=== PATIENT | female | born 1960 | race Caucasian/White ===

== ENCOUNTER → 2017-06-20 | Outpatient (CLI) | payer SELFPAY ==
[~2017-06-20] MED LIST: DEPAKOTE250 MG PO; EFFEXOR XR75 MG PO; RISPERDAL4 MG PO
== END | disposition designated cancer center or children's hospital (05) ==
LOC: RAD 09:00
DX: R41.82 Altered mental status, unspecified (principal)
CPT/HCPCS: 70450

== ENCOUNTER 2017-06-24 12:48 | Emergency (ER) | payer SELFPAY ==
[~2017-06-24] VITALS: Ht 177.8 cm; Wt 77.4 kg
[2017-06-24 14:21] LABS: BASOPHIL (%) 0.6 % (0-1); EOSINOPHIL (%) 1.8 % (0-5); EOSINOPHIL COUNT 0.1 K/uL (0-0.3); HEMATOCRIT 41.4 % (36.0-46.0); HEMOGLOBIN 14.1 G/DL (11.9-15.5); IMMATURE GRANULOCYTE (%) 0.3 % (0.0-0.7); LYMPHOCYTE (%) 49.1 % (15-42); LYMPHOCYTE COUNT 3.6 K/uL (1.0-2.8); MCH 32.3 PG (29.0-34.0); MCHC 34.1 G/DL (30.0-36.0); MCV 94.7 FL (83-99); MONOCYTE (%) 11.3 % (3-12); MONOCYTE COUNT 0.8 K/uL (0-0.8); NEUTROPHIL (%) 36.9 % (45-76); NEUTROPHIL COUNT 2.7 K/uL (1.8-6.4); PLATELET COUNT 257 K/uL (156-360); RBC DIS.WIDTH-CV 12.2 % (11.8-14.6); RBC DIS.WIDTH-SD 42.7 % (39-53); RED BLOOD COUNT 4.37 M/uL (3.80-5.20); WHITE BLOOD COUNT 7.3 K/uL (4.1-10.2)
[2017-06-24 14:22] LABS: ALBUMIN 4.4 g/dL (3.2-4.8)
[2017-06-24 14:23] LABS: CHLORIDE 104 mEq/L (99-109); POTASSIUM 4.3 mEq/L (3.7-5.4); SODIUM 142 mEq/L (136-147)
[2017-06-24 14:25] LABS: GLUCOSE 69 mg/dL (70-99); TOTAL PROTEIN 7.8 g/dL (6.4-8.3)
[2017-06-24 14:27] LABS: TOTAL BILIRUBIN 0.3 mg/dL (0.0-1.0)
[2017-06-24 14:28] LABS: ALKALINE PHOSPHATASE 86 IU/L (3-129); SERUM ETHYL ALCOHOL < 10 mg/dL
[2017-06-24 14:29] LABS: CREATININE 0.8 mg/dL (0.6-1.3); GFR ESTIMATE (CALCULATED) > 59 mL/min/
[2017-06-24 14:30] LABS: UREA NITROGEN (BUN) 19 mg/dL (9-23)
[2017-06-24 14:31] LABS: AST (GOT) 27 IU/L (2-34)
[2017-06-24 14:32] LABS: ALT (GPT) 27 IU/L (3-49)
[2017-06-24 15:35] LABS: APPEARANCE SL.HAZY ((CLEAR)); BILIRUBIN NEGATIVE; BLOOD NEGATIVE; COLOR YELLOW ((YELLOW)); GLUCOSE (STRIP) NEGATIVE; KETONES NEGATIVE; LEUKOCYTES NEGATIVE; NITRITE NEGATIVE; PROTEIN (STRIP) NEGATIVE; SPECIFIC GRAVITY 1.028 (1.000-1.030); UROBILINOGEN 0.2 MG/DL (0.2-1.0)
[2017-06-24 15:47] LABS: AMPHETAMINE NEGATIVE (500 ng/mL); BACTERIA NONE SEEN /HPF; BARBITURATES NEGATIVE (200 ng/mL); BENZODIAZEPINES NEGATIVE (150 ng/mL); BUPRENORPHINE NEGATIVE (10 ng/mL); COCAINE NEGATIVE (150 ng/mL); EPITHELIAL CELLS RARE /HPF; METHADONE NEGATIVE (200 ng/mL); METHAMPHETAMINE NEGATIVE (500 ng/mL); MUCUS TRACE /LPF; OPIATES (MORPHINE) NEGATIVE (100 ng/mL); OXYCODONE NEGATIVE (100 ng/mL); PHENCYCLIDINE NEGATIVE (25 ng/mL); PROPOXYPHENE NEGATIVE (300 ng/mL); THC CANNABINOIDS NEGATIVE (50 ng/mL); TRICYCLIC ANTIDEPRESSANTS NEGATIVE (300 ng/mL); UCUL ADDED? NO; WHITE BLOOD CELLS 0-5 /HPF (0-5)
[2017-06-24] MEDS ORDERED: DEPAKOTE250 MG PO (17:11)
[2017-06-24] MEDS ORDERED: RISPERDAL4 MG PO (17:11)
[2017-06-24] MEDS ORDERED: EFFEXOR XR75 MG PO (17:11)
[2017-06-24 18:43] VITALS: BP 115/72
== END 2017-06-24 18:48 ==
LOC: EME 12:48
PROVIDERS: Emergency Medicine
DX: F29 Unspecified psychosis not due to a substance or known physiological condition (principal); F22 Delusional disorders; E16.2 Hypoglycemia, unspecified; Z87.820 Personal history of traumatic brain injury; F31.9 Bipolar disorder, unspecified; F03.90 Unspecified dementia, unspecified severity, without behavioral disturbance, psychotic disturbance, mood disturbance, and anxiety; I10 Essential (primary) hypertension; F41.9 Anxiety disorder, unspecified
CPT/HCPCS: 80053; 81003; 82140; 82948; 85025; 90839; 99281; 99285; G0480

== ENCOUNTER 2017-08-05 10:35 | Emergency (ER) | payer SELFPAY ==
[~2017-08-05] VITALS: Ht 172.7 cm; Wt 83.8 kg
[2017-08-05 12:46] LABS: BASOPHIL (%) 0.5 % (0-1); BASOPHIL COUNT 0.1 K/uL (0-0.1); EOSINOPHIL (%) 1.3 % (0-5); EOSINOPHIL COUNT 0.1 K/uL (0-0.3); HEMATOCRIT 38.2 % (36.0-46.0); HEMOGLOBIN 13.1 G/DL (11.9-15.5); IMMATURE GRANULOCYTE (%) 0.5 % (0.0-0.7); LYMPHOCYTE (%) 26.3 % (15-42); LYMPHOCYTE COUNT 2.9 K/uL (1.0-2.8); MCHC 34.3 G/DL (30.0-36.0); MCV 93.4 FL (83-99); MONOCYTE (%) 9.1 % (3-12); NEUTROPHIL (%) 62.3 % (45-76); NEUTROPHIL COUNT 6.9 K/uL (1.8-6.4); PLATELET COUNT 320 K/uL (156-360); RBC DIS.WIDTH-CV 12.6 % (11.8-14.6); RBC DIS.WIDTH-SD 43.4 % (39-53); RED BLOOD COUNT 4.09 M/uL (3.80-5.20)
[2017-08-05 12:51] LABS: INTER. NORMALIZED RATIO 1.2
[2017-08-05 12:56] LABS: ALBUMIN 3.8 g/dL (3.2-4.8); CHLORIDE 105 mEq/L (99-109)
[2017-08-05 12:57] LABS: POTASSIUM 4.2 mEq/L (3.7-5.4); SODIUM 137 mEq/L (136-147)
[2017-08-05 12:59] LABS: GLUCOSE 96 mg/dL (70-99); TOTAL PROTEIN 6.8 g/dL (6.4-8.3)
[2017-08-05 13:01] LABS: TOTAL BILIRUBIN 0.3 mg/dL (0.0-1.0)
[2017-08-05 13:02] LABS: ALKALINE PHOSPHATASE 63 IU/L (3-129); CREATININE 0.7 mg/dL (0.6-1.3); GFR ESTIMATE (CALCULATED) > 59 mL/min/
[2017-08-05 13:04] LABS: AST (GOT) 30 IU/L (2-34); UREA NITROGEN (BUN) 10 mg/dL (9-23)
[2017-08-05 13:05] LABS: ALT (GPT) 33 IU/L (3-49)
[2017-08-05 16:20] VITALS: BP 152/87
== END 2017-08-05 16:20 | disposition designated cancer center or children's hospital (05) ==
LOC: EME 10:35
PROVIDERS: Emergency Medicine
DX: F03.90 Unspecified dementia, unspecified severity, without behavioral disturbance, psychotic disturbance, mood disturbance, and anxiety (principal); I10 Essential (primary) hypertension; F32.9 Major depressive disorder, single episode, unspecified; F41.9 Anxiety disorder, unspecified; F10.10 Alcohol abuse, uncomplicated; Z86.73 Personal history of transient ischemic attack (TIA), and cerebral infarction without residual deficits; Z87.820 Personal history of traumatic brain injury; Z91.81 History of falling
CPT/HCPCS: 70450; 71045; 80053; 81003; 85025; 85610; 99281; 99284

== ENCOUNTER → 2017-08-29 | Outpatient (CLI) | payer OTHER ==
[~2017-08-29] MED LIST changes: +ACIDOPHILUS1 EAC3 PO; +ATIVAN0.5 MG PO; +BISA-LAX5 MG PO; +CALCIDOL8000 UNIT/ PO; +FOLIC ACID1 MG PO; +LEVO-T112 MCG PO; +LIORESAL10 MG PO; +LOVENOX40 MG/0.4 SC; +MULTIVIT A B D PO; +NEURONTIN250 MG/5 M PO; +NON-ASPIRIN PA500 M1 PO; +PROTONIX40 M1 PO; +SILACE50 MG/5 ML PO; +VALTREX50 MG/ML PO; +VITAMIN B-1100 MG PO; +ZESTRIL10 MG PO
== END | disposition home or self-care (01) ==
LOC: AMB 09:30
DX: R13.10 Dysphagia, unspecified (principal); G31.2 Degeneration of nervous system due to alcohol; F10.259 Alcohol dependence with alcohol-induced psychotic disorder, unspecified; I10 Essential (primary) hypertension; K21.9 Gastro-esophageal reflux disease without esophagitis; E03.9 Hypothyroidism, unspecified; Z87.891 Personal history of nicotine dependence
CPT/HCPCS: 99212

== ENCOUNTER → 2017-09-01 | Outpatient (CLI) | payer OTHER ==
[~2017-09-01] VITALS: Ht 170.2 cm; Wt 73.0 kg
== END | disposition designated cancer center or children's hospital (05) ==
LOC: AMB 16:00
PROC: 0DH63UZ Insertion of Feeding Device into Stomach, Percutaneous Approach (ICD-10-PCS; principal; 2017-09-01)
DX: R13.10 Dysphagia, unspecified (principal); E51.2 Wernicke's encephalopathy; B37.0 Candidal stomatitis
CPT/HCPCS: J2405; J3010